=== PATIENT | male | born 1995 | race Caucasian/White ===

== ENCOUNTER 2016-06-29 19:04 | Emergency (ER) | payer BC ==
--- NOTE | 2016-06-29 19:14 | ER Document Report ---
ED Medical Screen (RME) - General Stated Complaint: FOREIGN OBJECT IN RIGHT EYE Notes: patient is a 20 year old male with FB sensation in his eye, he was working with metal yesterday and felt something get into his eye. EOMI, PERRLA, vision intact. visible object on the conjunctiva, nonmobile I have greeted and performed a rapid initial assessment of this patient. A comprehensive ED assessment and evaluation of the patient, analysis of test results and completion of the medical decision making process will be conducted by additional ED providers. TRAVEL OUTSIDE OF THE [place] IN LAST 30 DAYS: No Physical Exam - Vital signs Vitals: Temp Pulse Resp BP Pulse Ox 98.2 F 64 16 125/78 97 06/29/16 19:09 06/29/16 19:09 06/29/16 19:09 06/29/16 19:09 06/29/16 19:09 Course - Vital Signs Vital signs: Temp Pulse Resp BP Pulse Ox 98.2 F 64 16 125/78 97 06/29/16 19:09 06/29/16 19:09 06/29/16 19:09 06/29/16 19:09 06/29/16 19:09
[2016-06-29] MEDS ORDERED: TETRACAINE HCL 0.5% OPH SOLN 2 ML OD ONE (20:32)
--- NOTE | 2016-06-29 20:33 | ER Document Report ---
HPI - HPI Patient complains to provider of: metal in right eye Onset: Yesterday - afternoon Quality of pain: Other - irritated Pain Level: 4 Context: 20 yo male grinding metal without safety goggles and got piece of metal in right eye that he can't get out. Non contact lens wearer. Associated Symptoms: None Exacerbated by: Other - blinking Relieved by: Denies Similar symptoms previously: No Recently seen / treated by doctor: No - ROS ROS below otherwise negative: Yes Systems Reviewed and Negative: Yes All other systems reviewed and negative - DERM Skin Color: Normal, [place] Past Medical History - General Information source: Patient - Social History Smoking Status: Never Smoker Chew tobacco use (# tins/day): No Frequency of alcohol use: Occasional Drug Abuse: None Lives with: Spouse/Significant other Family History: Reviewed & Not Pertinent - Medical History Medical History: Negative Renal/ Medical History: Denies: Hx Peritoneal Dialysis Surgical Hx: Negative Vertical Provider Document - CONSTITUTIONAL Agree With Documented VS: Yes Exam Limitations: No Limitations General Appearance: No Apparent Distress - INFECTION CONTROL TRAVEL OUTSIDE OF THE [place] IN LAST 30 DAYS: No - HEENT Notes: injected right eye conjunctiva, imbedded black dot in right eye cornea, no hyphema. - NECK Neck: Supple - RESPIRATORY O2 Sat by Pulse Oximetry: 97 - MUSCULOSKELETAL/EXTREMETIES Musculoskeletal/Extremeties: RAMON TURPIN - NEURO Level of Consciousness: Awake, Alert - DERM Integumentary: Warm, Dry Course - Re-evaluation Re-evalutation: 06/29/16 21:14 We do not have ophthalmology on-call for the emergency department 06/29/16 21:14 - Vital Signs Vital signs: Temp Pulse Resp BP Pulse Ox 98.2 F 64 16 125/78 97 06/29/16 19:09 06/29/16 19:09 06/29/16 19:09 06/29/16 19:09 06/29/16 19:09 Procedures - Eye Procedure Right Time completed: 21:00 Foreign body removal: Right Alcaine Drops Administered: No - tetracaine eye drops Antibiotic Oinment/Drps Admin: Right eye - polytrim Slit lamp used: No Notes: 06/29/16 21:20 25 gauge needle on syringe used tangentally to remove the metal speck Eyes picture: 1 - metal fb removed leaving rust discoloration and corneal disruption from removal Discharge - Discharge Clinical Impression: right corneal metal foreign body removal, remaining rust discoloration, right corn Condition: Good Disposition: HOME, SELF-CARE Instructions: Eyedrop Use ([facility]), Corneal Foreign Body with Rust ([facility]) Additional Instructions: call the manager benefit in the morning and see them for rest discoloration removal Continue the antibiotic eyedrops until you see the manager benefit one drop 4 times a day Return to the emergency room any concerns Please complete the patient satisfaction survey if you get one, and return it.. If you do not receive a survey, then you can go to the [facility] website, [email or web address] and place your comments about your very good care. Thank you very much. It was a pleasure being your medical provider today. Referrals: POLO RAMOS MD [ACTIVE STAFF] - Follow up tomorrow
[2016-06-29 21:40] VITALS: BP 118/76
[2016-06-29] MEDS ORDERED: POLYMYXIN B SULFATE/TMP OPH SOLN (10 ML/ER DISP) OD SCH (22:00)
== END 2016-06-29 21:37 | disposition home or self-care (01) ==
LOC: ER 19:04
PROC: 08C8XZZ Extirpation of Matter from Right Cornea, External Approach (ICD-10-PCS; principal; 2016-06-29)
DX: T15.01XA Foreign body in cornea, right eye, initial encounter (principal); W20.8XXA Other cause of strike by thrown, projected or falling object, initial encounter; Y93.89 Activity, other specified
CPT/HCPCS: 99283; 65220; J3490

== ENCOUNTER 2017-03-07 19:42 | Emergency (ER) | payer BC ==
[2017-03-07 19:58] VITALS: BP 123/85
[2017-03-07] MEDS ORDERED: DIPH/PERTUSS(ACELL)/TETANUS VAC/PF 0.5 ML SYR (>=10YO) IM ONE (20:42)
[2017-03-07] MEDS ORDERED: LIDOCAINE 1% INJ-PF (10 MG/ML) 30 ML SDV INJ ONE (20:42)
--- NOTE | 2017-03-07 20:43 | ER Document Report ---
ED Medical Screen (RME) - General Chief Complaint: Laceration Stated Complaint: LEFT HAND LACERATION Time Seen by Provider: 03/07/17 20:41 TRAVEL OUTSIDE OF THE [place] IN LAST 30 DAYS: No - HPI Notes: 03/07/17 20:42 Left hand laceration on knife. - Related Data Allergies/Adverse Reactions: No Known Allergies Allergy (Verified 03/07/17 20:42) Past Medical History Renal/ Medical History: Denies: Hx Peritoneal Dialysis - Immunizations Hx Diphtheria, Pertussis, Tetanus Vaccination: Yes Review of Systems - Review of Systems Skin: Other - Hand laceration Physical Exam - Vital signs Vitals: Temp Pulse Resp BP Pulse Ox 98.4 F 89 16 123/85 94 03/07/17 19:56 03/07/17 19:56 03/07/17 19:56 03/07/17 19:56 03/07/17 19:56 - Respiratory Respiratory status: No respiratory distress Chest status: Nontender Breath sounds: Normal Chest palpation: Normal Course - Vital Signs Vital signs: Temp Pulse Resp BP Pulse Ox 98.4 F 89 16 123/85 94 03/07/17 19:56 03/07/17 19:56 03/07/17 19:56 03/07/17 19:56 03/07/17 19:56
--- NOTE | 2017-03-07 21:12 | ER Document Report ---
ED General - General Chief Complaint: Laceration Stated Complaint: LEFT HAND LACERATION Time Seen by Provider: 03/07/17 20:41 Mode of Arrival: Ambulatory Information source: Patient Notes: 21-year-old male presents with self-inflicted accidental knife injury to his left hand near the thenar eminence. Patient denies any weakness, tetanus is not up-to-date TRAVEL OUTSIDE OF THE [place] IN LAST 30 DAYS: No - HPI Onset: Just prior to arrival Onset/Duration: Sudden Quality of pain: Sharp Severity: Mild Pain Level: 1 Associated symptoms: Other Exacerbated by: Denies Relieved by: Denies Similar symptoms previously: No Recently seen / treated by doctor: No - Related Data Allergies/Adverse Reactions: No Known Allergies Allergy (Verified 03/07/17 20:42) Past Medical History - Social History Smoking Status: Current Every Day Smoker Cigarette use (# per day): Yes Chew tobacco use (# tins/day): No Smoking Education Provided: No Family History: Reviewed & Not Pertinent Patient has suicidal ideation: No Patient has homicidal ideation: No Renal/ Medical History: Denies: Hx Peritoneal Dialysis - Immunizations Hx Diphtheria, Pertussis, Tetanus Vaccination: Yes Review of Systems - Review of Systems Notes: REVIEW OF SYSTEMS: CONSTITUTIONAL : Denies fever, chills, or sweats. Denies recent illness. EENT: Denies eye, ear, throat, or mouth pain or symptoms. Denies nasal or sinus congestion or discharge. Denies throat, tongue, or mouth swelling or difficulty swallowing. CARDIOVASCULAR: Denies chest pain. Denies palpitations or racing or irregular heart beat. Denies ankle edema. RESPIRATORY: Denies cough, cold, or chest congestion. Denies shortness of breath, difficulty breathing, or wheezing. GASTROINTESTINAL: Denies abdominal pain or distention. Denies nausea, vomiting , or diarrhea. Denies blood in vomitus, stools, or per rectum. Denies black, tarry stools. Denies constipation. GENITOURINARY: Denies difficulty urinating, painful urination, burning, frequency, blood in urine, or discharge. MUSCULOSKELETAL: Denies back or neck pain or stiffness. Denies joint pain or swelling. SKIN: Hand laceration HEMATOLOGIC : Denies easy bruising or bleeding. LYMPHATIC: Denies swollen, enlarged glands. NEUROLOGICAL: Denies confusion or altered mental status. Denies passing out or loss of consciousness. Denies dizziness or lightheadedness. Denies headache. Denies weakness or paralysis or loss of use of either side. Denies problems with gait or speech. Denies sensory loss, numbness, or tingling. Denies seizures. PSYCHIATRIC: Denies anxiety or stress. Denies depression, suicidal ideation, or homicidal ideation. ALL OTHER SYSTEMS REVIEWED AND NEGATIVE. Dictation was performed using [employer] voice recognition software PHYSICAL EXAMINATION: GENERAL: Well-appearing, well-nourished and in no acute distress. HEAD: Atraumatic, normocephalic. EYES: Pupils equal round and reactive to light, extraocular movements intact, sclera anicteric, conjunctiva are normal. ENT: Nares patent, oropharynx clear without exudates. Moist mucous membranes. NECK: Normal range of motion, supple without lymphadenopathy LUNGS: Breath sounds clear to auscultation bilaterally and equal. No wheezes rales or rhonchi. HEART: Regular rate and rhythm without murmurs ABDOMEN: Soft, nontender, nondistended abdomen. No guarding, no rebound. No masses appreciated. Musculoskeletal: Normal range of motion, no pitting or edema. No cyanosis. NEUROLOGICAL: Cranial nerves grossly intact. Normal speech, normal gait. Normal sensory, motor exams, full range of motion full-strength and thumb and hand PSYCH: Normal mood, normal affect. SKIN: Laceration is noted of the left hand at the thenar eminence into the web spacing between the first and second digit there is no involvement of tendons no significant bleeding noted Physical Exam - Vital signs Vitals: Temp Pulse Resp BP Pulse Ox 98.4 F 89 16 123/85 94 03/07/17 19:56 03/07/17 19:56 03/07/17 19:56 03/07/17 19:56 03/07/17 19:56 Course - Re-evaluation Re-evalutation: 03/08/17 03:48 Area was washed extensively, 8 stitches were placed to approximate the wound, patient will be started on antibiotics and will be placed in a splint so he does not move his digits in hand too much so he does not rip the sutures out patient is told to return in 10-14 days for removal of the sutures or very quickly to return if there is any sign of infection or other concerns After performing a Medical Screening Examination, I estimate there is LOW risk for OPEN FRACTURE, COMPARTMENT SYNDROME, TENDON RUPTURE, ACUTE NEUROVASCULAR INJURY, or RETAINED FOREIGN BODY, thus I consider the discharge disposition reasonable. Also, there is no evidence or peritonitis, sepsis, or toxicity. I have reevaluated this patient multiple times and no significant life threatening changes are noted. The patient and I have discussed the diagnosis and risks, and we agree with discharging home with close follow-up with the understanding that symptoms and presentations can change. We also discussed returning to the Emergency Department immediately if new or worsening symptoms occur. We have discussed the symptoms which are most concerning (e.g., changing or worsening pain, fever, numbness, weakness, cool or painful digits) that necessitate immediate return. - Vital Signs Vital signs: Temp Pulse Resp BP Pulse Ox 98.4 F 89 16 123/85 94 03/07/17 19:56 03/07/17 19:56 03/07/17 19:56 03/07/17 19:56 03/07/17 19:56 Procedures - Immobilization Left Hand Time completed: 03:49 Pre-Proc Neuro Vasc Exam: Normal Immobilizer type: Cock-up Performed by: PCT Post-Proc Neuro Vasc Exam: Normal Alignment checked and good: Yes - Laceration/Wound Repair Left Hand Time completed: 23:00 Wound length (cm): 7 Wound's Depth, Shape: Superficial, Irregular, Flap Laceration pre-procedure: Sterile PPE donned, Sterile drapes applied, Shur- Clens applied Anesthetic type: 1% Lidocaine Volume Anesthetic (mLs): 10 Wound explored: No foreign body removed, Contaminated Irrigated w/ Saline (mLs): 6,000 Wound Debrided: Moderate Wound Repaired With: Sutures Suture Size/Type: 5:0, Ethilon Number of Sutures: 8 Layer Closure?: No Post-procedure wound care: Sterile dressing applied, Splint applied Post-procedure NV exam normal: Yes Complications: No Discharge - Discharge Clinical Impression: Hand laceration Qualifiers: Encounter type: initial encounter Foreign body presence: without foreign body Laterality: left Qualified Code(s): S61.412A - Laceration without foreign body of left hand, initial encounter Condition: Stable Disposition: HOME, SELF-CARE Instructions: Laceration Care ([facility]) Additional Instructions: Follow-up in 10-14 days for removal of sutures or immediately if there is any sign of infection or any other concerns Prescriptions: Cephalexin Monohydrate [Keflex 500 mg Capsule] 500 mg PO Q6H 10 Days capsule Hydrocodone/Acetaminophen [[place] 5-325 mg Tablet] 1 tab PO Q6 #10 tablet Referrals: BRET SHAFER MD [Primary Care Provider] - Follow up as needed
== END 2017-03-07 22:18 | disposition home or self-care (01) ==
LOC: ER 19:42
PROC: 0HQGXZZ Repair Left Hand Skin, External Approach (ICD-10-PCS; principal; 2017-03-07)
DX: S61.412A Laceration without foreign body of left hand, initial encounter (principal); W26.0XXA Contact with knife, initial encounter; F17.210 Nicotine dependence, cigarettes, uncomplicated
CPT/HCPCS: 99283; 90471; 90715; 12002; L3908; J3490